=== PATIENT | male | born 1990 | race Caucasian/White ===

== ENCOUNTER 2019-09-01 17:25 | Emergency (ER) | payer OTHER ==
[~2019-09-01] VITALS: Ht 185.4 cm; Wt 97.5 kg
[2019-09-01] MEDS ORDERED: IBUP600 PO (19:01)
[2019-09-01] MEDS ORDERED: HYDR1TAB94 PO (19:01)
== END 2019-09-01 20:15 | disposition home or self-care (01) ==
LOC: ER 17:25
DX: S82.252A Displaced comminuted fracture of shaft of left tibia, initial encounter for closed fracture (principal); S82.222A Displaced transverse fracture of shaft of left tibia, initial encounter for closed fracture; W22.8XXA Striking against or struck by other objects, initial encounter
CPT/HCPCS: 73590; 99283-25

== ENCOUNTER 2019-09-03 12:50 | Day surgery (SDC) | payer OTHER ==
[~2019-09-03] VITALS: Ht 185.4 cm; Wt 94.1 kg
[~2019-09-03 12:50] MED LIST: HYDR1TAB94 PO; IBUP600 PO
--- NOTE | 2019-09-03 13:57 | NUR ---
History, Chart, Medications and Allergies reviewed before start of procedure. Lungs clear T/O to Auscultation. Patient confirms NPO status and agrees with scheduled surgery. Pre-Op teaching done. Pt verbalizes understanding. Patient States Post-Procedure ride home has been arranged if needed.
--- NOTE | 2019-09-03 18:20 | NUR ---
PT ARRIVED TO ROOM 218 FROM PACU PT IS S/P ORIF L TIBIA EYAL WRAP CDI ELEV ON BLANKETS WITH POLAR PACK PT REPORTS PAIN 6-7 FOOD OFFERED FAMILY AT BEDSIDE ORIENTED TO ROOM
--- NOTE | 2019-09-03 19:10 | NUR ---
PT REQ NO PAIN MED FOR DISCHARGE HOME PT HAS HARDCOPY RX ALREADY WRITTEN WILL TALK WITH DR JUSTIN IN AM WHEN HE ROUNDS WITH PT
--- NOTE | 2019-09-04 06:03 | NUR ---
SHIFT SUMMARY: PT POD #1 FOR ORIF OF LLE. STABLE T/O SHIFT. LLE ELEVATED ON PILLOWS WITH POLAR PACK IN PLACE. EYAL WRAP REINFORCED FOR SMALL AMT OF SANGUINOUS DRG. PT GETTING TO BSC WITH 1 MINIMAL ASSIST. NWB TO LLE. PT DENIES NEED FOR PAIN MEDS T/O SHIFT. LEFT PEDAL PULSE STRONG, CAP REFILL WNL. FOOT REMAINS SWOLLEN. PT ABLE TO WIGGLE TOES.
--- NOTE | 2019-09-04 09:35 | NUR ---
DR VAUGHN HERE RECENTLY TO SEE PT. DISCUSSED PAIN MEDICATION. DR WARD RN TO CHANGE DRESSING. PPX4. PT MOVING ANKLE WELL. PT REQ TO HAVE A LESS STRONG PAIN MEDICATION.
[2019-09-04] MEDS ORDERED: HYDR1TAB94 PO (11:32)
--- NOTE | 2019-09-04 13:36 | NUR ---
OTHER GRETA Urbna BEEN GIVEN REPORT AND REPORTS WILL CHANGE DRESSING PER DR Jones
--- NOTE | 2019-09-04 13:38 | NUR ---
OTHER GRETA Urban TAKING OVER CARE OF PT.
--- NOTE | 2019-09-04 13:45 | NUR ---
ASSUMED CARE OF PATIENT AT THIS TIME. DRESSING CHANGE TO SURGICAL LEG PER DOCTOR'S ORDERS. PLAN FOR DC HOME THIS AFTERNOON. AWAITING RIDE.
--- NOTE | 2019-09-04 14:43 | NUR ---
DISCHARGE: PT DC TO HOME AT THIS TIME WITH FATHER. PT MEDICATED FOR PAIN. PT VERBALIZED UNDERSTANDING OF INSTRUCTIONS, FOLLOW UP, PROBLEMS TO REPORT AND MEDICATIONS. SCRIPTS GIVEN. PT HAS HOME CRUTCHES. IV DC'D WNL. POLAR PACK AND DRESSING SUPPLIES GIVEN TO PATIENT. PT LEFT VIA WHEELCHAIR TO CAR WITH BELONGINGS.
--- NOTE | 2019-09-06 09:57 | NUR ---
09/06/19 0957 Gely Campbell CONFIRMED 1ST COUNT CORRECT WITH GRETA GREENE. VERIFICATIONS, AUDITS.
== END 2019-09-04 14:41 | disposition home or self-care (01) ==
LOC: ORSCMMR 12:50 → SURS 18:21 → ORSCMMR 09-04 14:41
PROVIDERS: Orthopaedic Surgery
PROC: 0QSH04Z Reposition Left Tibia with Internal Fixation Device, Open Approach (ICD-10-PCS; principal; 2019-09-03 14:15)
DX: S82.202A Unspecified fracture of shaft of left tibia, initial encounter for closed fracture (principal); F17.290 Nicotine dependence, other tobacco product, uncomplicated
CPT/HCPCS: 97161; 97530; A9270-GY; C1713; J0690; J1100; J1885; J2250; J2270; J2405; J2704; J3010; J7120